=== PATIENT | female | born 1940 | race Caucasian/White ===

== ENCOUNTER 2017-07-21 14:59 | Emergency (ER) | payer MEDICARE, MEDICAID ==
[~2017-07-21] VITALS: Ht 167.6 cm; Wt 87.1 kg
[2017-07-21 17:35] LABS: BASOPHIL % 0.3 % (0-2); PLATELET COUNT 231 x10^3mcL (130-400); RED CELL DISTRIBUTION WIDTH 14.7 % (11.5-14.5)
[2017-07-21 17:44] LABS: CARBON DIOXIDE 26.6 mmol/L (21-32); CHLORIDE SERUM 102 mmol/L (98-107); CREATININE SERUM 1.2 mg/dL (0.6-1.0); GLUCOSE SERUM 224 mg/dL (74-106); SODIUM SERUM 140 mmol/L (136-145)
[2017-07-21 17:56] LABS: ALKALINE PHOSPHATASE 104 U/L (46-116); ALT/SGPT 19 U/L (14-59); AST/SGOT 13 U/L (15-37); BILIRUBIN TOTAL 0.4 mg/dL (0.20-1.00)
[2017-07-21 17:57] LABS: TOTAL PROTEIN, SERUM 8.6 g/dL (6.4-8.2)
[2017-07-21 18:34] LABS: CK-MB < 0.5 ng/mL (0-3.6); CREATINE KINASE 53 U/L (26-192)
[2017-07-21 19:34] VITALS: BP 162/77
== END 2017-07-21 19:34 | disposition home or self-care (01) ==
LOC: ED 14:59
PROVIDERS: Emergency Medicine
DX: M10.072 Idiopathic gout, left ankle and foot (principal); I10 Essential (primary) hypertension; E11.9 Type 2 diabetes mellitus without complications; E78.00 Pure hypercholesterolemia, unspecified
CPT/HCPCS: 83880; J1885; Q0092